=== PATIENT | female | born 1940 | race Caucasian/White ===

== ENCOUNTER 2016-10-31 22:39 | Inpatient (IN) | payer MEDICARE ==
[~2016-10-31] VITALS: Ht 157.5 cm; Wt 83.3 kg
--- NOTE | 2016-10-31 22:51 | ED.REPORT ---
HPI-Stroke / CVA Oct 31, 2016 ED Provider: Angel Freeman MD 76 year old female with a history of HTN and diabetes presents to the ER accompanied by multiple family members due to concern for stroke symptoms. Last known normal approximately 21:45. reports that the patient began speaking incoherently, slurring her words, and that he noticed a facial droop. Symptoms have improved markedly since onset. Patient denies headache, nausea, vomiting, chest pain, and bowel symptoms. Nursing Notes Stated Complaint: SLURRED WORDS Chief Complaint: Stroke Symptoms Nursing Notes Reviewed: Yes Allergies: Coded Allergies: No Known Allergies (Verified Allergy, Unknown, 11/01/16) General Time Seen by Provider: 22:51 Chief Complaint Slurred speech Hx Obtained From: Patient, Spouse Arrived By: Walk-in Time last known well 21:45 today Sudden in Onset?: Yes Symptom Duration: Since onset Progression Since Onset: Gradually improving Associated with: Denies: Bladder dysfunction, Bowel dysfunction, Headache, Nausea, Vomiting Context Related History: Denies: Cerebrovascular accident Similar Sx Previous: No Risk Factors )( TPA Administration/Criteria Stroke Thrombolytic Therapy : TPA Administered Intravenously: No, not indicated NIH Stroke Scale Level of Consciousness: Alert and responsive (0) Ask Month & Age: Both questions right (0) Open/Close Eyes/Hand Greaser And Oiler: Performs both tasks (0) Horizontal EO Movements: None (0) Visual Ash: No visual loss (0) Facial Palsy: Minor paralysis (1) Right Arm Motor Drift (10s): No drift 10 sec (0) Left Arm Motor Drift (10s): No drift 10 sec (0) Right Leg Motor Drift (5s): No drift 5 sec (0) Left Leg Motor Drift (5s): No drift 5 sec (0) Limb Ataxia FNF/Heel-Sullivan: No ataxia (0) Sensation (Arms/Legs/Face): No sensory loss (0) Language Aphasia: No aphasia, normal (0) Dysarthria: Slurring intelligible (1) Extinction/Inattention: No exctinct/inattent (0) NIHSS Score: 2 Time NIHSS Performed: 23:07 Date NIHSS Performed: Oct 31, 2016 Past Medical History Past Medical History Denies history of DC or atrial fibrillation Reports: Diabetes mellitus, Hypertension, Denies: Stroke Smoking History Former Smoker Social History Alcohol Use: 1-3 per week Other Social History: Good social support, Review of Systems Constitutional: Denies: Chills, Fever Respiratory: Denies: Shortness of breath Cardiovascular: Denies: Chest pain GI: Denies: Nausea, Vomiting Neurologic: Reports: Slurred speech, Denies: Bladder dysfunction, Bowel dysfunction, Headache, Syncope Complete sys rev & neg: except as marked. Physical Exam Initial Vital Signs Vital Signs (First) Date Time Temp Pulse Resp B/P Pulse Ox O2 Delivery O2 Flow Rate FiO2 10/31/16 22:58 36.6 82 22 154/69 95 Room Air Initial VS: Reviewed Extremities: Vascular intact, Neuro intact, No swelling, No tenderness Skin: Warm, Dry, No cyanosis Psychiatric: Mood/affect normal, Behavior normal, Normal thought content General/Constitutional: Awake, Alert, Well developed, Well nourished Head / Eyes: Atraumatic, Normocephalic Neck: Supple, Full range of motion, No swelling, Non-tender, No carotid bruit Respiratory / Chest: Breath sounds NL, Breath sounds = bilat, No respiratory distress, No rales, No rhonchi, No wheezing Cardiovascular: Heart rate NL, Regular rhythm, Heart sounds NL, No murmurs, Peripheral circulation NL Neurologic: Oriented X3, CN II - XII intact, Cerebellar NL Speech: Positive: Slurred See NIH Interpretation & Diagnostics Lab Results Interpretation Result Diagram: 11/01/16 0550 10/31/16 2250 Test 10/31/16 22:50 11/01/16 00:25 Prothrombin Time 10.3sec (8.1-12.5) Prothromb Time International Ratio 0.96ratio Activated Partial Thromboplast Time 27.1sec (22.8-33.0) Total Bilirubin 0.2mg/dL (0.0-1.2) Aspartate Amino Transf (AST/SGOT) 20U/L (0-50) Alanine Aminotransferase (ALT/SGPT) 12U/L (0-32) Alkaline Phosphatase 108U/L (25-165) Total Protein 7.9g/dL (6.4-8.4) Albumin 3.8g/dL (3.4-5.0) Hold Ortiz Top Tube Received (Received) Urine Color Yellow (YELLOW) Urine Appearance Hazy (CLEAR,HAZY) Urine pH 5.5 (5.0-8.0) Urine Specific [place] 1.025 (1.003-1.035) Urine Protein 100mg/dL (NEG,TRACE) Urine Glucose (UA) Negativemg/dL (NEGATIVE) Urine Ketones Negativemg/dL (NEGATIVE) Urine Occult Blood Negative (NEGATIVE) Urine Nitrite Negative (NEGATIVE) Urine Bilirubin Negative (NEGATIVE) Urine Urobilinogen Normalmg/dL (NORMAL) Urine Leukocyte Esterase Negative (NEGATIVE) Urine RBC 0-2/hpf (0-2) Urine WBC 0-5/hpf (0-5) Urine Epithelial Cells Many/hpf (NONE-MOD) Urine Crystals None seen (NONE SEEN) Urine Bacteria Few/hpf (NONE-FEW) Urine Hyaline Casts None/lpf (NONE) Urine Granular Casts None seen (NONE SEEN) Urine Waxy Casts None seen (NONE SEEN) Urine Red Blood Cell Casts None seen (NONE SEEN) Urine White Blood Cell Casts None seen (NONE SEEN) Urine Mucus Present (None Seen) Urine Trichomonas None seen (NONE SEEN) Urine Yeast None (NONE SEEN) Urine Culture Reflexed Not indicated ECG Interpretation Time: 23:06 Interpreted by: ED physician Normal ECG Interpretation: Normal rate, Normal sinus rhythm, No acute ischemic changes, Normal QRS, Normal axis, Normal intervals, No change from prior ECGs, Adequate tracing CT Head Interpretation CONCLUSION: Moderate involutional changes. Moderate patchy low density bilaterally in the deep white matter likely due to chronic ischemic small vessel disease. No acute intracranial abnormality. Electronically signed by Garth Goode MD Study: Head CT no contrast Interpretation / Wet Read by: Interpret - Radiologist, Discussed w radiologist Re-Eval/Medical Decision Med Decision/Clinical Course 76-year-old female without prior stroke or TIA history, presents with garbled speech and right-sided facial droop. Her symptoms essentially resolved, with some minor dysarthria persistent. There is perhaps a trace of facial asymmetry still present. She has at worst a stroke scale of two. She has a pattern of rapid resolution of her prior symptoms. Risk benefits alternatives of lytic therapy discussed in detail, and she and the family reasonably understand that the risks outweigh the benefits at this point, and that she should not undergo lytic therapy. She is admitted to the medicine service for completion of her evaluation including MRA and echo. Transported in stable condition. Given full dose aspirin Source of Hx: Old records Re-Evaluation/Progress : Time of Eval: 23:06 Re-Evaluation/Progress Note: Completed physical examination. Discussed need for admission. Patient is amenable to the plan. All other questions addressed. Consultation : Referral / Consult Name: RaghavprincessSari Wylie Consulted With: Hospitalist Call Returned at: 00:37 [place] Man: Agrees with eval, Agrees with plan, Accepts admit Counseled Regarding: Diagnosis, Lab results, Need for admission Patient Discharge & Departure Impression: Primary Impression: Cerebrovascular accident CVA mechanism: embolism Precerebral and cerebral artery: middle cerebral artery, left Qualified Code: I63.412 - Cerebral infarction due to embolism of left middle cerebral artery Additional Impression: Transient ischemic attack Disposition: ADMITTED TO HOSPITAL Discharge Condition All VS Reviewed: Yes Condition: Stable Referrals: Rachel Lane MD (PCP) Scribe Attestation Portions of this note were transcribed by Justin Gonzalez. I, Dr. Freeman, personally performed the history, physical exam and medical decision-making; I reviewed and confirmed the accuracy of the information in the transcribed note. Signed by: Melinda Sauer. 11/01/2016 - 06:08 copies to: Rachel Lane MD, Christopher W MD Oct 31, 2016 22:51 JUSTIN GONZALEZ Oct 31, 2016 22:58 None seen (NONE SEEN) Urine Red Blood Cell Casts None seen (NONE SEEN) Urine White Blood Cell Casts None seen (NONE SEEN) Urine Mucus Present (None Seen) Urine Trichomonas None seen (NONE SEEN) Urine Yeast None (NONE SEEN) Urine Culture Reflexed Not indicated ECG Interpretation Time: 23:06 Interpreted by: ED physician Normal ECG Interpretation: Normal rate, Normal sinus rhythm, No acute ischemic changes, Normal QRS, Normal axis, Normal intervals, No change from prior ECGs, Adequate tracing CT Head Interpretation CONCLUSION: Moderate involutional changes. Moderate patchy low density bilaterally in the deep white matter likely due to chronic ischemic small vessel disease. No acute intracranial abnormality. Electronically signed by Garth Goode MD Study: Head CT no contrast Interpretation / Wet Read by: Interpret - RadiologistSusan radiologist Re-Eval/Medical Decision Source of Hx: Old records Re-Evaluation/Progress : Time of Eval: 23:06 Re-Evaluation/Progress Note: Completed physical examination. Discussed need for admission. Patient is amenable to the plan. All other questions addressed. Consultation : Referral / Consult Name: Sari Hanson DO Consulted With: Hospitalist Call Returned at: 00:37 [place] Man: Agrees with eval, Agrees with plan, Accepts admit Counseled Regarding: Diagnosis, Lab results, Need for admission Patient Discharge & Departure Impression: Primary Impression: Cerebrovascular accident Disposition: ADMITTED TO HOSPITAL Discharge Condition All VS Reviewed: Yes Condition: Stable Referrals: Rachel Lnae MD (PCP) Scribe Attestation Portions of this note were transcribed by Justin Gonzalez. I, Dr. Freeman, personally performed the history, physical exam and medical decision-making; I reviewed and confirmed the accuracy of the information in the transcribed note. Signed by: Melinda Sauer. 11/01/2016 - 06:08 copies to: Rachel Lane MD, Christopher W MD Oct 31, 2016 22:51 JUSTIN GONZALEZ Oct 31, 2016 22:58
[2016-10-31 22:54] LABS: BASOPHILS % (AUTO) 0.5 % (0-3); MONOCYTES % (AUTO) 7.4 % (4-12); Mean Corpuscular Hemoglobin 29.5 pg (27.0-35.0); Mean Corpuscular Volume 91.4 fL (81-100); Platelet Count 296 bil/L (150-400)
[2016-10-31 22:58] VITALS: BP 154/69; PULSE 82; RESP 22; O2SAT 95
[2016-10-31 23:12] LABS: INR 0.96 ratio
[2016-10-31 23:33] LABS: TROPONIN T 0.013 ug/L (0.0-0.011)
[2016-11-01] VITALS (10 sets, daily range): BP systolic 135–168; BP diastolic 61–88; PULSE 63–89; RESP 16–22; O2SAT 94–97
[2016-11-01] MEDS ORDERED: Alum-Mag Hydrox-Simeth 30 mL Suspension PO PRN (00:40)
[2016-11-01] MEDS ORDERED: Ondansetron 2 mg/mL 2 mL Inj IV PRN (00:40)
[2016-11-01] MEDS ORDERED: Polyethylene Glycol (PEG) 17 Gm Powder PO PRN (00:40)
[2016-11-01] MEDS ORDERED: HYDROmorphone 1 mg/mL Inj IVPUSH PRN (00:40)
[2016-11-01] MEDS ORDERED: Glucose 40% Oral Gel 15 Gm Tube PO PRN (00:45)
[2016-11-01 00:48] LABS: APPEARANCE,URINE HAZY (CLEAR,HAZY); COLOR,URINE YELLOW (YELLOW); OCCULT BLOOD,URINE NEGATIVE (NEGATIVE); PH,URINE 5.5 (5.0-8.0); UROBILINOGEN,URINE NORMAL (NORMAL)
--- NOTE | 2016-11-01 03:05 | PCM.HPMED ---
Subjective Date of Service Nov 01, 2016 Primary Provider: Admitting Physician: aSri Hanson DO Primary Care Physician: Rachel Lane MD Attending Physician: Sari Hanson DO Admit Status: From the Emergency Department, Remote Telemetry Chief Complaint: Slurred speech History of Present Illness: Ms. Scarlett Sandoval is a pleasant 76 year old female with a history of HTN and insulin-using diabetes who presents to the ED accompanied by multiple family members due to concern for stroke symptoms. At the time of admission, patient's family has left and patient is not able to provide a detailed history. According to the ED notes, last known normal approximately 21:45. reports that the patient began speaking incoherently, slurring her words, and that he noticed a facial droop. Patient states that she did not notice the symptoms herself until her family told her so. She admits that the symptoms have improved markedly since onset. Otherwise, patient denies headache, change in mental status, CP, SOB, weakness, nausea, vomiting, fever, or chills. She denies any history of TIA, stroke, or WI in the past. In the ED, patient's vital signs were within normal limits. However, she still has significant slurred speech and minor facial droop. WBC 11.4, BUN 39, Cr 1.52. CT head did not reveal any acute intracranial abnormality. EKG normal sinus and rate of 81. Review of Systems: A comprehensive review of systems was conducted with the patient and found to be negative except as above in the History of Present Illness. Allergies Coded Allergies: No Known Allergies (Verified Allergy, Unknown, 11/01/16) Home Medications Per next gen Medication Name Directions alprazolam 0.25 mg tablet take 1 - 2 Tablet by ORAL route once prior to MRI amlodipine 10 mg tablet take 1 tablet (10MG) by oral route every day for high blood pressure. aspirin 81 mg tablet,delayed release take 1 tablet (81MG) by oral route every day atorvastatin 40 mg tablet TAKE ONE TABLET BY MOUTH IN THE EVENING FOR HIGH CHOLESTEROL Blood Glucose Monitoring Kit use to test blood glucose levels 3 times daily for diabetes. cyanocobalamin (vit B-12) 1,000 mcg/mL injection solution inject 1 milliliter by INTRAMUSCULAR route every month hydrocodone 5 mg-acetaminophen 325 mg tablet take 1 tablet by oral route 1-2 times daily as needed. insulin syringe-needle U-100 0.3 mL 31 x 5/16" inject insulin once every day for insulin lancets use to test blood glucose levels 3 times daily for diabetes. Lantus 100 unit/mL subcutaneous solution INJECT 62 UNITS SUBCUTANEOUSLY EVERY EVENING for diabetes lisinopril 20 mg tablet take 1 tablet (20MG) by oral route every day for high blood pressure. mupirocin 2 % topical ointment apply by topical route 2 times every day a small amount to the scabbed area until healed ProAir HFA 90 mcg/actuation aerosol inhaler inhale 2 puff by inhalation route every 4 - 6 hours as needed for breathing Stool Softener take 1 capsule by oral route every day at bedtime as needed Test Strips STRIP use to test blood glucose levels 3 times daily for diabetes. triamcinolone acetonide 0.1 % topical ointment apply 2 times every day a thin layer to the affected area(s) for 2wks then every other day for 2 weeks then as needed 2-3 times a week Vesicare 10 mg tablet take 1 tablet by oral route every day for bladder PMH Per next gen Hyperlipidemia LDL goal < 100 Type 2 diabetes with nephropathy Knee pain, chronic Other chronic pain HTN (hypertension) Hypertriglyceridemia Urinary incontinence Shortness of breath CKD (chronic kidney disease) stage 3, GFR 30-59 ml Surgical History Reports Hysterectomy and Tonsillectomy Family History Mother had breast cancer and father had colon cancer. Social History Hx Alcohol Use: Yes (occasionally has 2-3 drinks every 2 weeks.) Hx Substance Use: No Smoking Status: Former Smoker (quit 28 yrs ago) Living Arrangement: with Family Additional Information Patient uses a walker at baseline. PCP is Dr. Rachel Lane. Exam Vital Signs Vital Sign - Last Date Time Temp Pulse Resp B/P Pulse Ox O2 Delivery O2 Flow Rate FiO2 10/31/16 22:58 36.6 82 22 154/69 95 Room Air Exam General: No acute distress, well-developed, well-nourished, appropriately interactive HEENT: Normocephalic, atraumatic. External ears without defect. Pupils equal, round, and reactive to light and accommodation. Anicteric sclerae, moist conjunctivae, and no lid lag. Oropharynx free of erythema and cobble stoning with moist mucosa. Neck: Supple with full range of motion. No jugular venous distension. No lymphadenopathy or thyromegaly. Cardiovascular: Regular rate and rhythm with III/ systolic murmurs, loudest at the right sternal border. No rubs or gallops appreciated Pulmonary: Clear to auscultation bilaterally with no crackles, wheezes, or rhonchi. Normal respiratory effort with no use of accessory muscles. Abdomen: Bowel tones present. Soft, nontender, nondistended. No hepatosplenomegaly or masses appreciated. Extremities: Mild pitting edema in bilateral lower extremities. No clubbing, cyanosis, or lymphadenopathy appreciated. Skin: Normal temperature, turgor, and texture; no rash, ulcers, or subcutaneous nodules appreciated. Neurological: Slurred speech. Mild facial droop on the right. Cranial nerves grossly intact. Normal muscle strength, tone, and bulk. Reflexes, coordination , and sensory function within normal limits. No known gait impairment. Psychiatric: Normal mood and affect. Alert and oriented to person, place, and time. Lab and Diagnostics Result Diagram: 10/31/16224910/31/162249 X-Rays, CTs and MRIs CT Head Interpretation CONCLUSION: Moderate involutional changes. Moderate patchy low density bilaterally in the deep white matter likely due to chronic ischemic small vessel disease. No acute intracranial abnormality. Electronically signed by Garth Goode MD Study: Head CT no contrast Interpretation / Wet Read by: Interpret - Radiologist, Discussed w radiologist 12-lead ECG Normal ECG Interpretation: Normal rate, Normal sinus rhythm, No acute ischemic changes, Normal QRS, Normal axis, Normal intervals, No change from prior ECGs, Adequate tracing. Assessment & Plan 76 year old female with a history of HTN and insulin-using diabetes who presents to the ED for slurred speech and facial droop onset prior to arrival that have gradually improved. 1. Transient ischemic attack, present on admission, active. - Patient presents of slurred speech and facial droops that have improved. - CT brain was negative for acute intracranial process, thus, no indication for tPA. - MRI stroke protocol in the morning. - Echo cardiogram in the morning to look for any structural abnormality. Last Echo was done on 11/22/14 showed normal systolic function of 60-65% and relaxation abnormality of the left ventricle. - Check Lipid panel. hgbA1c pending - Start Atorvastatin and ASA. - Continue to monitor neuro status. - NPO until clear by speech. ST/OT/PT in the morning. 2. Chronic kidney disease, stage 3, present on admission, active. - BUN and Cr are elevated but both are at baseline compared to previous labs on nextgen. - Patient has known diabetic nephropathy. - Continue to monitor. 3. Elevated troponin, present on admission, active. - In the setting of chronic kidney disease. Trop 0.013. - No ischemic changes on EKG and patient is asymptomatic. - Will continue to trend trop. 4. Diabetes Mellitus, Insulin-using, chronic. - Check A1c. - Home Lantus is 62 units HS. Will resume after med rec and after diet is advanced. - Low dose correctional insulin in the mean time. 5. Hypertension, chronic, stable. - Will hold home antihypertensive medications for permissive hypertension due to possible stroke. 6. Aortic stenosis, chronic, presume stable. - Systolic murmur noted on exam, which is not new to the patient. - Previous Echo in 2014 showed moderate-severe aortic stenosis with aortic valve mean gradiant of 29mmHg and a calculated aortic valve are of 0.9sqcm. - Repeat Echo. Med rec:need to be done by the day team. CODE STATUS: FULL per the patient. Patient is admitted under inpatient status with expected length of stay greater than 2 midnights due to severity of presenting symptoms, risk of adverse event, and complexity of treatment plan. Pain Evaluation: Adequate Pain Control GI Prophylaxis: H2 dariela VTE Prophylaxis: Sub-Q Heparin (Unfractionated) Resuscitation Status: CPR: Attempt Resuscitation Attending Statement /The patient was seen and examined together with house staff on 11/01/2016 and I agree with the history, exam and plan as outlined in the note above. copies to: Rachel Lane MD, Ngochanh H DO Nov 01, 2016 01:30 Sari Hanson DO Nov 01, 2016 05:19
--- NOTE | 2016-11-01 03:39 | NUR ---
Admit Patient arrived to room 1021 via ER stretcher. Able to move from ER stretcher to [facility] bed with two person staff assist. A&Ox3, answering questions appropriately. Speech noted to be a little slurred, with difficulty in pronunciation of words. Able to follow commands. Right side noted to be slightly weaker than left side. Face symmetrical. IV patent. Admit completed with patient to best of her ability. Med rec not completed as patient is unsure of home medications, but uses [id number] in . Oriented to room and call light. Tele placed.
[2016-11-01 06:57] LABS: BASOPHILS % (AUTO) 0.5 % (0-3); EOSINOPHILS % (AUTO) 4.6 % (0-5); MONOCYTES % (AUTO) 10.8 % (4-12); Mean Corpuscular Hemoglobin 29.6 pg (27.0-35.0); Mean Corpuscular Volume 93.1 fL (81-100); NEUTROPHILS % (AUTO) 51.5 % (40-74); Platelet Count 224 bil/L (150-400)
[2016-11-01 07:48] LABS: TROPONIN T 0.011 ug/L (0.0-0.011)
[2016-11-01] MEDS: Insulin LISPRO 300 Unit/3 mL Inj SUBQ SCH ×4 (08:00→21:22)
--- NOTE | 2016-11-01 09:03 | DRSVH ---
PROCEDURE: X-RAY CHEST ONE VIEW, PORTABLE ([id number]) INDICATIONS: stroke TECHNIQUE: One view of the chest was acquired. COMPARISON: None. FINDINGS: Surgical changes and devices: None. Lungs and pleura: No pleural effusions or pneumothorax. Lungs are clear. Mediastinum: Mediastinal contours appear normal. Heart size is normal. Bones and chest wall: No suspicious bony lesions. Overlying soft tissues appear unremarkable. IMPRESSION: Expiratory chest demonstrating no definite acute cardiopulmonary process. Dictated by: Dominguez Lowery [facility] Interpreted: Sylvie Pollock MD on 11/01/2016 at 9:02 Transcribed by: ERIC on 11/01/2016 at 9:02 Approved by: Sylvie Pollock MD, PhD on 11/01/2016 at 16:27
--- NOTE | 2016-11-01 09:20 | DRSVH ---
PROCEDURE: CT BRAIN (TPA) ([id number]) INDICATIONS: Stroke TECHNIQUE: Noncontrast 4.5 mm thick angled axial sections acquired from the foramen magnum to the vertex, with c oronal reformats. COMPARISON: [facility], MR, MR STROKE PROTOCOL, 01/05/2016, 11:09. FINDINGS: Image quality: Excellent. CSF spaces: Basal cisterns are patent. No extra-axial fluid collections. The ventricles are symmet anton in size and shape. Brain: No intracranial bleeds. Calcified left posterior frontal extra-axial mass likely representing a meningioma is stable compared to prior MRI. There is cerebral volume loss for age, with resultant ventricular and sulcal prominence. There are periventricular and deep white matter chronic small ve ssel ischemic changes. There is intracranial internal carotid artery atherosclerosis. Skull and face: Calvarium and visualized facial bones appear intact, without suspicious lesions. Sinuses: Visualized sinuses and mastoids are clear. IMPRESSION: No acute intracranial disease process. This study fulfills neurological imaging criteria for inclusion or exclusion of acute stroke therapie s based on available published neurological guidelines. Dictated by: Sylvie Pollock MD, PhD on 11/01/2016 at 9:16 Approved by: Sylvie Pollock MD, PhD on 11/01/2016 at 9:19
--- NOTE | 2016-11-01 10:41 | DRSVH ---
PROCEDURE: MRI STROKE PROTOCOL ([id number]) Pre- and post-contrast brain MRI, non-contrast brain MR angiogram, pre- and postcontrast neck MR colleen ogram INDICATIONS: CVA. 76 year-old female with history of hypertension and diabetes presenting with slur red speech and facial droop which resolved.. TECHNIQUE: Brain: Noncontrast axial T1 spin echo, axial T2 fast spin echo, sagittal and axial FLAIR, coronal T2 fast spin echo, axial gradient echo, axial diffusion and ADC through the brain. After the administr ation of contrast, axial 3D VIBE of the cranial vasculature and brain. Brain MRA: Non-contrast 3-D time of flight MR angiogram, with multiple xsuikkb-brhaeepta-eozksrxepa (MIP) reformats performed. Neck MRA: Axial and sagittal TruFISP through the neck. Coronal dynamic MR angiogram during administ ration of contrast in the arterial and venous phases, with 3-dimenstional hlauhct-lycbwoguu-kasnblbyn n (MIP) reformats constructed from subtraction images. COMPARISON: [facility], MR, MR BRAIN W&WO CON, 07/31/2016, 13:38. [facility], CT, BRAIN (TPA), 10/31/2016, 22:55. FINDINGS: Image quality: There is motion artifact limiting evaluation. BRAIN: CSF spaces: There is moderate cerebral volume loss with prominence of the ventricles and sulci. Basa l cisterns are patent. No extra-axial fluid collections. Brain: Diffusion weighted images demonstrate an acute infarct. No intracranial hemorrhage or midlin e shift. There is an extra-axial mass along the right parietal convexity redemonstrated measuring ap proximately 1.8 x 1.5 x 1.2 cm redemonstrated, stable from the prior MRI study. There is mild mass e ffect on the underlying parietal lobe again noted. There is magnetic susceptibility artifact redemon strated consistent with internal calcifications. Gifford-white matter interface is preserved. There ar e bilateral subcortical and periventricular areas of white matter T2 hyperintensity system with moder ate proximal vessel ischemic changes. Brainstem appears within normal limits. Normal intravascular flow voids are present. Skull and face: Calvarial marrow signal is normal. Orbits appear normal. Sinuses: There is mild mucosal thickening in the ethmoid sinuses. Mastoid air cells are clear. BRAIN MR ANGIOGRAM: Anterior circulation: Intracranial internal carotid arteries are patent bilaterally. The flow withi n the paired anterior cerebral arteries is noted bilaterally. There is a focal stenosis in the M1 se gment of the right posterior artery. There is also a focal stenosis at the junction of the M1 and M2 segments of the right middle cerebral artery. There is mild focal narrowing at the junction of the M1 and M2 segments of the left middle cerebral artery. There is luminal irregularity elsewhere within the anterior circulation consistent with mild multifocal atherosclerotic narrowing. Posterior circulation: The visualized portions of the vertebral arteries appear patent and join to f orm a patent basilar artery. The flow within the posterior cerebral arteries is patent bilaterally. There is persistent circulation on the left, with the left posterior cerebral artery supplied by the posterior communicating artery. NECK MR ANGIOGRAM: Carotids: Great vessels demonstrate conventional anatomy as they arise from the aortic arch. The or igin of the left common carotid artery is not well-visualized which may be due to technical and motio n artifact at the arch. The calibers and courses of both common carotid arteries are normal. The bi furcation regions demonstrate mild narrowing of less than 50% the carotid bulbs. The internal caroti d arteries demonstrate normal course and caliber. Posterior circulation: The origins of the vertebral arteries appear patent. More superior portions of both vertebral arteries demonstrate normal course and caliber, and join to form a normal appearing basilar artery. Miscellaneous: Subclavian arteries appear patent. Pre-contrast images through the neck show no soft tissue abnormalities. IMPRESSION: BRAIN MRI: 1. No evidence of infarct or other acute intracranial abnormality. 2. Right extra-axial mass at the convexity consistent with a meningioma is stable in appearance. 3. Moderate cerebral volume loss and chronic white matter small vessel ischemic changes. BRAIN MR ANGIOGRAM: 1. 2 sequential focal stenoses within the right middle cerebral artery involving the M1 segment and junction with the M2 segment. These appear moderate to severe in degree of narrowing. 2. Mild focal narrowing in the left middle cerebral artery. NECK MR ANGIOGRAM: 1. No definite high-grade stenosis or occlusion of the head and neck arteries. There is mild narrow ing in the carotid bulbs of less than 50%. 2. Origin of the left common carotid artery not well-visualized likely due to artifact. The estimate of stenosis included in the report of the imaging study was calculated using the NASCET method Dictated by: Kwesi Ruiz M.D. on 11/01/2016 at 10:11 Approved by: Kwesi Ruiz M.D. on 11/01/2016 at 10:40
[2016-11-01] MEDS: Heparin 5,000 Unit/mL Inj SUBQ SCH ×2 (10:55→16:55)
--- NOTE | 2016-11-01 11:48 | NUR ---
REQ FOR MED LIST Sent to [facility] in [facility]. Patient's in room and did not bring medications from home and no med list with patient.
[2016-11-01] MEDS ORDERED: INSU100V7 SUBQ (13:28)
--- NOTE | 2016-11-01 13:28 | NUR ---
Evaluation completed. Please go to "Notes" then click on "Assessments and Notes" (bottom left corner of screen). Then select appropriate discipline tab on top of screen.
[2016-11-01] MEDS ORDERED: SOLI5TAB2 PO (13:30)
[2016-11-01] MEDS ORDERED: TOLT2TAB5 PO (13:30)
[2016-11-01] MEDS ORDERED: LISI-567 PO (13:30)
--- NOTE | 2016-11-01 13:50 | NUR ---
Social Work- Initial Assessment Data: See Initial Assessment. Pt is a 76 year old female admitted 11/01/16 for stroke per H&P. Pt's insurance is [employer]. PCP is Rachel Laen MD. SW met with pt, Den ([phone]), and granddwayne Estrella ([phone]) at bedside to discuss discharge plan, SW role explained. Pt alert and oriented x3. Pt resides in [place] with her where she remains independent with ADLs. [place], does not drive. Per chart review, pt is ambulating. Pt has no HH or SNF history, no LTC or VA benefits. Pt states her DPOA is son Dave Sandoval [phone]. SW encouraged pt to bring copy of paperwork to hospital. PT evaluated patient and has cleared pt for home with outpt PT follow up. ST and OT evaluations are pending. Pt to discharge home with family to transport via POV. No anticipated discharge needs, SW will continue to follow. Assessment: Pt who is independent at [facility]. Plan: ST and OT evaluations pending. PT cleared pt for home with outpt PT. Pt to discharge home with family to transport via POV. No anticipated discharge needs, SW will continue to follow. YONATAN Alcantar Addendum: 11/01/16 at 1353 by LETHA NEWMAN SS Amended: Links added.
--- NOTE | 2016-11-01 14:30 | NUR ---
MED REC Med rec completed by admit nurse. notified in person that it was complete.
--- NOTE | 2016-11-01 15:25 | NUR ---
NUTRITION ASSESSMENT: ASSESS: 76 YO female admitted for TIA. Pt was seen by ST and started on a dysphagia mechanical, nectar thick diet. No po intake has been reported yet. PMHx: hyperlipidemia, Type 2 DM w/neuropathy, HTN, SOB, chronic kidney disease stage III. LABS: Reviewed. BUN 41, Cr 1.44, Glu 119, Alb 3.8. MEDS: Reviewed. GI: No BM reported yet. CURRENT WT: 103.5 kg. Adj BW: 63.4 kg. DIET: Dysphagia Mech, Obion Thick liquids. No po intake yet. EST. NEEDS (Stage III kidney disease, BMI): 2305-4821 kcals (25-30 kcals/kg Adj BW), 50-65 g protein (0.8-1.0 g/kg Adj BW) NUTRITION DIAGNOSIS: 1.) Chewing / swallowing difficulties related to motor causes as evidenced by current need for mechanically altered diet texture, ST following. NUTRITION INTERVENTION: 1.) Continue to advance diet as able per ST recommendations. MONITOR / EVAL: PO intake, diet advancement / tolerance, labs, nutritional status. Follow per moderate nutritional risk guidelines.
--- NOTE | 2016-11-01 15:46 | NUR ---
ACTIVITY Alert and oriented x3, able to make needs known. Patient still has right sided facial droop with slurred speech. R arm slightly weaker than L. Gait steady with FWW, 1 person assist to bathroom. Seen by JR. SYSTEMS ADMINISTRATOR and now has altered diet. Provided nectar thick water for patient to drink at bedside. Care continues.
--- NOTE | 2016-11-01 21:26 | PCM.PNMED ---
Subjective Date of Service Nov 01, 2016 Subjective Patient's speech is still very slurred. She states that she is also having a little bit of trouble controlling her saliva. She is not sure about her swallowing capabilities as of yet. She still complains of some right upper extremity weakness and right lower extremity weakness. Exam Vital Signs Vital Sign - Last Date Time Temp Pulse Resp B/P Pulse Ox O2 Delivery O2 Flow Rate FiO2 11/01/16 20:02 36.5 78 18 152/79 94 Room Air Intake and Output 10/31/16 10/31/16 11/01/16 Cumulative From/Thru 15:00 23:00 07:00 10/31/16 23:00 - 11/01/16 05:55 Intake Total 0 ml 0 ml Balance 0 ml 0 ml Intake Oral 0 ml 0 ml # Voids 1 1 Exam General: Patient is sitting up right in bed and does not appear to be in any apparent distress. HEENT: Head is atraumatic and normocephalic. Eyes: Pupils are equally round and reactive to light and accommodation. Extraocular muscles are intact. Sclera are white, anicteric. Subconjunctival mucosa is pink. Ears and nose are unremarkable. Oropharynx: There is right facial droop. There are no mucosal lesions, there is no thrush, there is no pharyngitis. Neck: Is supple, there are no nodes, or masses or tenderness. Chest: Is clear to auscultation and percussion. There are no rales, rhonchi, wheezes or rubs. Heart: Rate, rhythm is regular. There is a loud grade 3/6 systolic musical ejection murmur heard best at the left sternal border radiating to the base. There is no rub or gallop. Abdomen: Good bowel sounds are present. Abdomen is morbidly obese, soft, nontender, no organomegaly or masses were appreciated. Extremities: Are symmetrical and well perfused. There is no edema, there is no cellulitis, no rash. Neurologic: There is a right facial droop. There is weakness of the right upper extremity and right lower extremity greater than the nondominant left upper and left lower extremity. Psychiatric: Patients mood is calm and shows no sign of agitation. Genital: Deferred Rectal: Deferred Lab and Diagnostics Result Diagram: 11/01/16 0550 11/01/16 0550 X-Rays, CTs and MRIs CT Head Interpretation CONCLUSION: Moderate involutional changes. Moderate patchy low density bilaterally in the deep white matter likely due to chronic ischemic small vessel disease. No acute intracranial abnormality. Electronically signed by Garth Goode MD Study: Head CT no contrast Interpretation / Wet Read by: Interpret - Radiologist, Discussed w radiologist 12-lead ECG Normal ECG Interpretation: Normal rate, Normal sinus rhythm, No acute ischemic changes, Normal QRS, Normal axis, Normal intervals, No change from prior ECGs, Adequate tracing. Assessment & Plan 76 year old female with a history of HTN and insulin-using diabetes who presents to the ED for slurred speech and facial droop onset prior to arrival that have gradually improved. 1. Cerebrovascular accident with right-sided facial droop right upper extremity weakness and right lower extremities weakness which persists to this day., present on admission, active. - Patient presents of slurred speech and facial droops that have not significantly improved - CT brain was negative for acute intracranial process, thus, no indication for tPA. - MRI stroke protocol is significant for the following: "2 sequential focal stenoses within the right middle cerebral artery involving the M1 segment and junction with the M2 segment. These appear moderate to severe in degree of narrowing." This would not explain the patient's current symptoms. - Significant heart murmur which appears to be due to significant aortic stenosis on clinical exam. Echocardiogram will be done in the morning to look for any structural abnormality. Last Echo was done on 11/22/14 showed normal systolic function of 60-65% and relaxation abnormality of the left ventricle. - Check Lipid panel. hgbA1c pending - We will continue Atorvastatin and ASA. - Continue to monitor neuro status. - NPO until clear by speech. ST/OT/PT have been consulted. 2. Chronic kidney disease, stage 3, present on admission, active. - BUN and Cr are elevated and appear to be improving. - Patient has known diabetic nephropathy. - Continue to monitor. 3. Elevated troponin, present on admission, active. - I suspect this is due to the patient's chronic kidney disease. Troponin has decreased from 0.013 to 0.011. - There are No ischemic changes on EKG and patient is asymptomatic. - Will continue to trend troponin. 4. Diabetes Mellitus, Insulin-using, chronic. - Check A1c. - Home Lantus is 62 units HS. Will resume after med rec and after diet is advanced. - Low dose correctional insulin in the mean time. 5. Hypertension, chronic, stable. - Will hold home antihypertensive medications for permissive hypertension due to the patient's current Revo vascular accident.. 6. Aortic stenosis, chronic, due to the severity of the murmur on exam I suspect there may be progression of the patient's aortic stenosis - Systolic murmur noted on exam, which is not new to the patient. - Previous Echo in 2014 showed moderate-severe aortic stenosis with aortic valve mean gradiant of 29mmHg and a calculated aortic valve are of 0.9sqcm. - Repeat Echo. CODE STATUS: FULL per the patient. Disposition: Patient will need to be an inpatient for at least another 48 hours , for the continued evaluation and treatment of the above problems. Pain Evaluation: Adequate Pain Control GI Prophylaxis: H2 dariela VTE Prophylaxis: Sub-Q Heparin (Unfractionated) VTE Mechanical Devices: Intermittant Pneumatic CD Resuscitation Status: CPR: Attempt Resuscitation Angel Mendoza MD Nov 01, 2016 21:26
[2016-11-02] VITALS (7 sets, daily range): BP systolic 126–169; BP diastolic 69–90; PULSE 67–100; RESP 16–18; O2SAT 92–96
[2016-11-02] MEDS: Heparin 5,000 Unit/mL Inj SUBQ SCH ×2 (00:42→09:28)
--- NOTE | 2016-11-02 01:33 | NUR ---
Activity Patient pleasant and cooperative with care. Using call light appropriately for needs. Able to get up with one person SBA using FWW. Gait steady. No c/o dizziness or lightheadedness. Right side remains slightly weaker than the left in arm & leg. Able to move around and reposition self independently in bed.
[2016-11-02 06:07] LABS: BASOPHILS % (AUTO) 0.4 % (0-3); EOSINOPHILS % (AUTO) 4.9 % (0-5); MONOCYTES % (AUTO) 7.1 % (4-12); Mean Corpuscular Hemoglobin 29.5 pg (27.0-35.0); Mean Corpuscular Volume 92.6 fL (81-100); NEUTROPHILS % (AUTO) 40.2 % (40-74); Platelet Count 289 bil/L (150-400)
[2016-11-02 06:26] LABS: Magnesium 2.5 mg/dL (1.6-2.6); Phosphorus 3.9 mg/dL (2.5-4.9)
[2016-11-02] MEDS: Insulin LISPRO 300 Unit/3 mL Inj SUBQ SCH ×2 (07:46→12:00)
--- NOTE | 2016-11-02 16:00 | DRSVH ---
[facility] [address] [place] [address] Echocardiogram Report Name: CHAU CHAVEZ Michael e: 11/02/2016 Height: 62 in Hospital Exam Location: [facility] Weight: 184 lb Gender: Female BSA: 1.8 m2 : 1940 Age: 76 yrs BP: 169/90 mm Hg Reason For Study: STROKE Ordering Physician: HOSPITALIST [facility] Performed By: Jessica Brock Referring Physician: Dr Rachel Lane Interpretation Summary Left ventricular wall thickness is mildly increased. The left ventricular ejection fraction is grossly normal. There are no obvious focal wall motion abnormalities noted but poor endocardial definition reduces the sensitivity for the detection of such. The right ventricle is not well visualized. The right ventricle grossly appears normal in size with probable normal systolic function. Pulmonary artery pressures cannot be estimated because of the lack of a measurable TR jet velocity. The left atrium is moderately dilated. The right atrium is mildly dilated. There is no Doppler evidence for an atrial septal defect. Injection of contrast with Valsalva documented an interatrial shunt. There is moderate to severe aortic stenosis which has slightly increased since prior study. The calculated aortic valve area is 1.1 cm2. The peak aortic velocity is 4.0 m/sec. The aortic valve mean gradient is 38 mmHg. The peak aortic velocity on the previous exam was 3.7 m/sec. There is no other significant valvular heart disease. The aortic root is normal size. Procedure: A two-dimensional transthoracic echocardiogram with color flow and Doppler was performed. Image quality is very poor. A contrast injection of Definity was performed to improve assessment of LV function. A total of 5 cc of contrast was given. Contrast was injected into an intravenous site in the left arm. Comparison is made with the echocardiogram of 11-22-2014. The patient was in normal sinus rhythm during the exam. Left Ventricle: The left ventricle is not well visualized. The left ventricle is grossly normal size. Left ventricular wall thickness is mildly increased. The left ventricular ejection fraction is grossly normal. There are no obvious focal wall motion abnormalities noted but poor endocardial definition reduces the sensitivity for the detection of such. Right Ventricle: The right ventricle is not well visualized. The right ventricle grossly appears normal in size with probable normal systolic function. Atria: The left atrium is moderately dilated. The right atrium is mildly dilated. There is no Doppler evidence for an atrial septal defect. Injection of contrast with valsalva documented an interatrial shunt. Mitral Valve: The mitral valve is not well visualized. The mitral valve is grossly normal. There is mild mitral annular calcification. There is trace mitral regurgitation. Aortic Valve: The aortic valve is not well visualized. The aortic valve is severely calcified. There is moderate to severe aortic stenosis. The calculated aortic valve area is 1.1 cm2. The peak aortic velocity is 4.0 m/sec. The aortic valve mean gradient is 38 mmHg. The peak aortic velocity on the previous exam was 3.7 m/sec. There is trace aortic regurgitation. Tricuspid Valve: The tricuspid valve is not well visualized. Pulmonary artery pressures cannot be estimated because of the lack of a measurable TR jet velocity. Pulmonic Valve: The pulmonic valve is not well visualized. There is no pulmonic valvular regurgitation. There is no other significant valvular heart disease. Great Vessels: The aortic root is normal size. The dimensions of the ascending aorta are normal. The pulmonary is not well visualized. The IVC is dilated (diameter is greater than 2.1 cm) yet it collapses greater than 50% with a sniff. This suggests a right atrial pressure of 8 mm Hg. Pericardium/ Pleura There is no pericardial effusion. There is no pleural effusion. MMode/2D Measurements & Calculations LVIDd: 4.8 cm LA dimension: 3.9 cm RA long axis LVOT diam LVIDs: 3.6 cm FS: 25.6 % LA A2 area: 23.3 cm RA area AoV Opening IVSd: 1.2 cm LA A4 area: 16.8 cm LVPWd: 1.0 cm LA length (vol): 4.3 cm: 12.2 cm Ao root diam LA vol: 77.9 ml RA vol LA vol index : 29.9 ml asc Aorta RA Diam: 3.3 cm : 42.2 ml/m2 : 16.2 mm/ RVDd major : 6.7 cm LV dawn. diameter/BSA LV sys. diameter/BSA RVD2 (mid) (cm/m^2): 2.6 (cm/m^2): 1.9 : 3.4 cm Doppler Measurements & Calculations Ao V2 max MV E max adonis MV E/A: 0.78 PA V2 max : 399.8 cm/sec : 93.2 cm/sec Med Peak E' Adonis : 130.5 cm/sec Ao max P.9 mmHg MV A max adonis PA mean PG Ao mean P.9 mmH.6 cm/sec E/E' med: 19.9 LVOT Max Adonis MV P1/2t: 73.1 msec Lat Peak E' Adonis PA Accel Time : 101.3 cm/sec : 0.11 sec BILLY(I,D): 1.1 cm E/E' lat: 18.8 sev ratio: 0.32 E/e' average Pulm A Revs Dur MV A dur : 0.12 sec MV P1/2t max adonis Ao V2 mean LV V1 max PG PA V2 mean : 293.4 cm/sec : 91.9 cm/sec MVA(P1/2t): 3.0 cm2 Ao V2 VTI: 88.9 cm LV V1 VTI BILLY(V,D): 0.84 cm2 : 28.1 cm BILLY indexed to BSA Pulm A Revs Dur - MV A (cm^2/m^2): 0.57 Dur: 0.06 msec Reading Physician:SEBASTIAN
--- NOTE | 2016-11-02 17:11 | PCM.DIMED ---
Discharge Instructions Date of Service Nov 02, 2016 Dates of Hospitalization Nov 01, 2016 at 00:59 Discharge Diagnosis Discharge Diagnosis Left CVA with Right facial droop, dysphagia, right upper extremity weakness and right lower extremity weakness. Test Results Echocardiogram show significant aortic valve stenosis Diet Heart Healthy Activity Limited until seen by PCP (May increase gradually as tolerated.) Call your provider Fever or Chills, Shortness of breath, Bleeding, Chest pain, Vomitting, Excessive diarrhea, Weakness (unilateral) Patient Instructions Follow-up Provider: Rachel Lane MD Follow-up with PCP in: 1 week Provider: Joelle Ortega MD Follow-up in: 1 week (For Cardiology Evaluation) Mid-level Provider (F9): Ben Cortés MD Follow-up with Mid-level in: 2 weeks (For Neurology Consult) Angel Mendoza MD Nov 02, 2016 17:11
[2016-11-02] MEDS ORDERED: CLOP300 PO (17:25)
[2016-11-02] MEDS ORDERED: POLY17PO6 PO (17:25)
[2016-11-02] MEDS ORDERED: CLOP75TA3 PO (17:25)
[2016-11-02] MEDS ORDERED: ATOR40TA69 PO (17:25)
--- NOTE | 2016-11-02 18:29 | NUR ---
Discharge Pt d/c'd home at approx 1825. Reviewed d/c instructions w/ patient and her family. Answered all questions and concerns. IV d/c'd intact. Tele removed. Pt left w/ hard copies of RX and all belongings via w/c to her 's POV. Phone numbers provided for Dr Ortega and speech therapy
--- NOTE | 2016-11-02 23:15 | PCM.DC.MED ---
Discharge Summary Date of Service Nov 02, 2016 Dates of Hospitalization Date of Hospital Admission Nov 01, 2016 at 00:59 Date of Discharge: Nov 02, 2016 Providers: Admitting Physician: Sari Hanson DO Primary Care Physician: Rachel Lane MD Attending Physician: Sari Hanson DO Diagnosis at Time of Discharge Diagnosis at Time of Discharge Left CVA with Right facial droop, dysphagia, right upper extremity weakness and right lower extremity weakness. Procedures XRay, CTs & MRIs CT Head Interpretation CONCLUSION: Moderate involutional changes. Moderate patchy low density bilaterally in the deep white matter likely due to chronic ischemic small vessel disease. No acute intracranial abnormality. Electronically signed by Garth Goode MD Study: Head CT no contrast Interpretation / Wet Read by: Interpret - Radiologist, Discussed w radiologist ECG 12 Lead Normal ECG Interpretation: Normal rate, Normal sinus rhythm, No acute ischemic changes, Normal QRS, Normal axis, Normal intervals, No change from prior ECGs, Adequate tracing. Brief History Ms. Scarlett Sandoval is a pleasant 76 year old female with a history of HTN and insulin-using diabetes who presents to the ED accompanied by multiple family members due to concern for stroke symptoms. At the time of admission, patient's family has left and patient is not able to provide a detailed history. According to the ED notes, last known normal approximately 21:45. reports that the patient began speaking incoherently, slurring her words, and that he noticed a facial droop. Patient states that she did not notice the symptoms herself until her family told her so. She admits that the symptoms have improved markedly since onset. Otherwise, patient denies headache, change in mental status, CP, SOB, weakness, nausea, vomiting, fever, or chills. She denies any history of TIA, stroke, or NE in the past. In the ED, patient's vital signs were within normal limits. However, she still has significant slurred speech and minor facial droop. WBC 11.4, BUN 39, Cr 1.52. CT head did not reveal any acute intracranial abnormality. EKG normal sinus and rate of 81. She was admitted to the hospital service for further evaluation and treatment. Hospital Course The patient is a 76 year old female with a history of HTN and insulin-using diabetes who presents to the ED for slurred speech and facial droop onset prior to arrival that have gradually improved. 1. Cerebrovascular accident with right-sided facial droop right upper extremity weakness and right lower extremities weakness which persists to this day., present on admission, active. - Patient presents of slurred speech and facial droops that have not significantly improved - CT brain was negative for acute intracranial process, thus, no indication for tPA. - MRI stroke protocol is significant for the following: "2 sequential focal stenoses within the right middle cerebral artery involving the M1 segment and junction with the M2 segment. These appear moderate to severe in degree of narrowing." This would not explain the patient's current symptoms. - Significant heart murmur which appears to be due to significant aortic stenosis on clinical exam. Echocardiogram will be done in the morning to look for any structural abnormality. Last Echo was done on 11/22/14 showed normal systolic function of 60-65% and relaxation abnormality of the left ventricle. - Check Lipid panel. hgbA1c pending - We will continue Atorvastatin and ASA. - Continue to monitor neuro status. - NPO until clear by speech. ST/OT/PT have been consulted. 2. Chronic kidney disease, stage 3, present on admission, active. - BUN and Cr are elevated and appear to be improving. - Patient has known diabetic nephropathy. - Continue to monitor. 3. Elevated troponin, present on admission, active. - I suspect this is due to the patient's chronic kidney disease. Troponin has decreased from 0.013 to 0.011. - There are No ischemic changes on EKG and patient is asymptomatic. - Will continue to trend troponin. 4. Diabetes Mellitus, Insulin-using, chronic. - Check A1c. - Home Lantus is 62 units HS. Will resume after med rec and after diet is advanced. - Low dose correctional insulin in the mean time. 5. Hypertension, chronic, stable. - Will hold home antihypertensive medications for permissive hypertension due to the patient's current Revo vascular accident.. 6. Aortic stenosis, chronic, due to the severity of the murmur on exam I suspect there may be progression of the patient's aortic stenosis - Systolic murmur noted on exam, which is not new to the patient. - Previous Echo in 2014 showed moderate-severe aortic stenosis with aortic valve mean gradiant of 29mmHg and a calculated aortic valve are of 0.9sqcm. - Repeat Echo shows: moderate to severe aortic stenosis which has slightly increased since prior study. The calculated aortic valve area is 1.1 cm2. The peak aortic velocity is 4.0 m/sec. The aortic valve mean gradient is 38 mmHg. The peak aortic velocity on the previous exam was 3.7 m/sec. There is no other significant valvular heart disease. - I discussed these findings with Dr. Ortega podiatry professor [employer]. She states that the patient should likely be placed on Plavix as she failed oral aspirin prophylaxis and that she would be more than happy to see the patient in follow- up in her office. The patient knows Dr. Ortega and is happy to follow-up with her. CODE STATUS: FULL per the patient. Disposition: Patient is very anxious for discharge. Physical therapy has cleared patient for discharge to home with home health. The patient will be discharged home with home health. The patient will need outpatient speech therapy and occupational therapy and physical therapy. Exam Vital Signs (Last) Date Time Temp Pulse Resp B/P Pulse Ox O2 Delivery O2 Flow Rate FiO2 11/02/16 17:05 36.4 71 16 144/81 94 Room Air Exam General: Patient is sitting up right in bed and does not appear to be in any apparent distress. HEENT: Head is atraumatic and normocephalic. Eyes: Pupils are equally round and reactive to light and accommodation. Extraocular muscles are intact. Sclera are white, anicteric. Subconjunctival mucosa is pink. Ears and nose are unremarkable. Oropharynx: There is right facial droop. There are no mucosal lesions, there is no thrush, there is no pharyngitis. Neck: Is supple, there are no nodes, or masses or tenderness. Chest: Is clear to auscultation and percussion. There are no rales, rhonchi, wheezes or rubs. Heart: Rate, rhythm is regular. There is a loud grade 3/6 systolic musical ejection murmur heard best at the left sternal border radiating to the base. There is no rub or gallop. Abdomen: Good bowel sounds are present. Abdomen is morbidly obese, soft, nontender, no organomegaly or masses were appreciated. Extremities: Are symmetrical and well perfused. There is no edema, there is no cellulitis, no rash. Neurologic: There is a right facial droop. There is weakness of the right upper extremity and right lower extremity greater than the nondominant left upper and left lower extremity. Psychiatric: Patients mood is calm and shows no sign of agitation. Genital: Deferred Rectal: Deferred Test 10/31/16 22:50 11/01/16 00:25 11/01/16 05:50 11/01/16 11:55 Prothrombin Time 10.3sec (8.1-12.5) Prothromb Time International Ratio 0.96ratio Activated Partial Thromboplast Time 27.1sec (22.8-33.0) Hemoglobin A1c 5.8% (4.8-5.6) Hold Ortiz Top Tube Received (Received) Urine Color Yellow (YELLOW) Urine Appearance Hazy (CLEAR,HAZY) Urine pH 5.5 (5.0-8.0) Urine Specific Jarratt 1.025 (1.003-1.035) Urine Protein 100mg/dL (NEG,TRACE) Urine Glucose (UA) Negativemg/dL (NEGATIVE) Urine Ketones Negativemg/dL (NEGATIVE) Urine Occult Blood Negative (NEGATIVE) Urine Nitrite Negative (NEGATIVE) Urine Bilirubin Negative (NEGATIVE) Urine Urobilinogen Normalmg/dL (NORMAL) Urine Leukocyte Esterase Negative (NEGATIVE) Urine RBC 0-2/hpf (0-2) Urine WBC 0-5/hpf (0-5) Urine Epithelial Cells Many/hpf (NONE-MOD) Urine Crystals None seen (NONE SEEN) Urine Bacteria Few/hpf (NONE-FEW) Urine Hyaline Casts None/lpf (NONE) Urine Granular Casts None seen (NONE SEEN) Urine Waxy Casts None seen (NONE SEEN) Urine Red Blood Cell Casts None seen (NONE SEEN) Urine White Blood Cell Casts None seen (NONE SEEN) Urine Mucus Present (None Seen) Urine Trichomonas None seen (NONE SEEN) Urine Yeast None (NONE SEEN) Urine Culture Reflexed Not indicated Triglycerides Level 294mg/dL (0-149) Cholesterol Level 333mg/dL (100-199) LDL Cholesterol, Calculated 233.200mg/dL (0-99) VLDL Cholesterol 58.800mg/dL HDL Cholesterol 41mg/dL (>39) Cholesterol/HDL Ratio 8.12 (0.0-4.4) Troponin T 0.011ug/L (0.0-0.011) Test 11/02/16 05:15 White Blood Count 10.9th/mm3 (3.8-10.1) Red Blood Count 4.85mil/mm3 (3.90-5.20) Hemoglobin 14.3g/dL (12.0-15.6) Hematocrit 44.9% (35.0-46.0) Mean Corpuscular Volume 92.6fL (81-100) Mean Corpuscular Hemoglobin 29.5pg (27.0-35.0) Mean Corpuscular Hemoglobin Concent 31.8% (32.0-37.0) Red Cell Distribution Width 15.5% (12.3-15.4) Platelet Count 289bil/L (150-400) Neutrophils (%) (Auto) 40.2% (40-74) Lymphocytes (%) (Auto) 47.2% (14-46) Monocytes (%) (Auto) 7.1% (4-12) Eosinophils (%) (Auto) 4.9% (0-5) Basophils (%) (Auto) 0.4% (0-3) Sodium Level 141mEq/L (134-144) Potassium Level 4.5mEq/L (3.5-5.2) Chloride Level 103mEq/L (97-108) Carbon Dioxide Level 23mmol/L (18-29) Blood Urea Nitrogen 30mg/dL (8-27) Creatinine 1.32mg/dL (0.57-1.00) Estimat Glomerular Filtration Rate 56mL/min (>59) Glucose Level 136mg/dL (60-99) Calcium Level 9.7mg/dL (8.5-10.1) Phosphorus Level 3.9mg/dL (2.5-4.9) Magnesium Level 2.5mg/dL (1.6-2.6) Total Bilirubin 0.4mg/dL (0.0-1.2) Aspartate Amino Transf (AST/SGOT) 16U/L (0-50) Alanine Aminotransferase (ALT/SGPT) 11U/L (0-32) Alkaline Phosphatase 97U/L (25-165) Total Protein 7.0g/dL (6.4-8.4) Albumin 3.8g/dL (3.4-5.0) Discharge Medications Discharge Medications Atorvastatin Calcium (Atorvastatin Calcium) 40 Mg Tablet 40 MG PO HS Prescribed by: PADMINI MENDOZA MD Clopidogrel Bisulfate (Plavix) 75 Mg Tablet 75 MG PO DAILY Please start on 11/04/16. Prescribed by: PADMINI MENDOZA MD Clopidogrel Bisulfate (Plavix) 300 Mg Tablet 300 MG PO ONCE Please take on 11/03/16 Prescribed by: PADMINI MENDOZA MD Solifenacin Succinate (Vesicare) 5 Mg Tablet 10 MG PO DAILY (Reported) Tolterodine Tartrate (Tolterodine Tartrate) 2 Mg Tablet 2 MG PO HS (Reported) As needed Polyethylene Glycol 3350 (Miralax) 17 Gm Powd.pack 17 GM PO DAILY PRN PRN For Constipation Prescribed by: PADMINI MENDOZA MD Followup Plan Disposition: Patient is being discharged home with her family. Discharge Diet: Heart Healthy Discharge Activity: Limited until seen by PCP (May increase gradually as tolerated.) Follow-up Provider: Rachel Lane MD Follow-up with PCP in: 1 week Provider: Joelle Ortega MD Follow-up in: 1 week (For Cardiology Evaluation) Mid-level Provider: Ben Cortés MD Follow-up with Mid-level in: 2 weeks (For Neurology Consult) Time spent Time spent on discharging this patient was greater than 35 minutes, over half of which was involved in counseling and coordination of care. Angel Mendoza MD Nov 02, 2016 23:15
== END 2016-11-02 18:21 | disposition home or self-care (01) | DRG 65 ==
LOC: SED 22:39 → OSC 11-01 00:59
PROVIDERS: ADMIT Internal Medicine; ATTEND Internal Medicine
DX: I63.9 Cerebral infarction, unspecified (principal); G81.91 Hemiplegia, unspecified affecting right dominant side; R47.81 Slurred speech; R29.810 Facial weakness; R29.702 NIHSS score 2; N18.3 Chronic kidney disease, stage 3 (moderate); I12.9 Hypertensive chronic kidney disease with stage 1 through stage 4 chronic kidney disease, or unspecified chronic kidney disease; E11.9 Type 2 diabetes mellitus without complications; Z87.891 Personal history of nicotine dependence; Z79.4 Long term (current) use of insulin